=== PATIENT | female | born 1945 | race Caucasian/White ===

== ENCOUNTER → 2021-09-28 09:16 | Outpatient (CLI) | payer MEDICARE, SELFPAY ==
--- NOTE | ~2021-09-28 | CT_ITS ---
EXAMINATION: CT thoracic spine wo con EXAM DATE: 09/28/2021 09:38 INDICATION: Radiculopathy, thoracic pain. TECHNIQUE: Spiral CT thoracic spine was performed without contrast. Axial, coronal and sagittal im ages were reviewed. The dose-length product (DLP) for this examination was 995.36 mGy-cm. The expos ure was tailored according to patient size (auto mA exposure control), and iterative reconstruction ( ASIR) was used as additional dose reduction technique. There is no prior study for comparison. FINDINGS: There are moderate-sized mid and lower thoracic endplate osteophytes. There is mild to mod erate thoracic disc disease and facet arthropathy. There is sizable hemangioma in T5 and another T9. Vertebral body heights are relatively well-maintained, no acute fracture line is identified. No evide nce of significant thoracic central canal stenosis. There is mild to moderate right neural foraminal stenosis at T10-11, likely the most narrowed level. Pacemaker/AICD device. There are no bony erosions identified. There are no osteoblastic or osteolytic lesions identified. There is incompletely imaged right middle lobe airspace disease which could be atelectasis but cancer not excludable. The imaged portion measures about 1.4 cm. Further evaluation recommended with dedica teresa chest CT. There may be a 3 cm left thyroid lobe nodule which could be further evaluated with ultr asound. IMPRESSION: 1. Mild to moderate thoracic spondylosis. 2. Incompletely imaged right middle lobe indeterminate opacity; recommend chest CT without contrast. 3. Left thyroid lobe nodule; consider ultrasound for risk presentation. Reviewed, dictated and finalized at location G. BILLING SPECIALIST IMPRESSION: 1. Mild to moderate thoracic spondylosis. 2. Incompletely imaged right middle lobe indeterminate opacity; recommend ches t CT without contrast. 3. Left thyroid lobe nodule; consider ultrasound for risk presentation.
== END ==
PROVIDERS: PCP Family Medicine; Visit Provider Nurse Practitioner Family
DX: M47.24 Other spondylosis with radiculopathy, thoracic region (principal)
CPT/HCPCS: 72128

== ENCOUNTER → 2021-11-24 13:58 | Outpatient (CLI) | payer MEDICARE, SELFPAY ==
--- NOTE | ~2021-11-24 | CT_ITS ---
EXAMINATION: CT diagnostic chest wo con DATE: 11/24/2021 14:28 INDICATION: Recent CT thoracic spine examination of September 28, 2021 showed abnormal middle lobe [place], only partially visualized due to collimation TECHNIQUE: Computed tomography (CT) of the chest was performed without intravenous contrast. Automate d exposure control and iterative reconstruction technique were employed. Exam dose: 647.86 mGy-cm to dontae exam DLP. COMPARISON: September 28, 2021 CT thoracic spine FINDINGS: One or more hypoattenuating lesions of the left lobe of the thyroid gland measuring up to 1 9.5 mm transverse and 23 mm anteroposterior overall dimension. Consider thyroid ultrasound examinatio n for stratification. Left-sided transvenous pacemaker device with right atrial, right ventricular and coronary sinus leads . Normal heart size. Prominent coronary artery calcification. No pericardial effusion. No pleural effus ion. No hilar or mediastinal mass lesion or lymphadenopathy. No thoracic aortic aneurysm. Up to 1.5 x 2.4 cm circumscribed lobular low-attenuation opacity is noted in the anterior segment of the right upper lobe, abutting the minor fissure inferiorly, with attenuation of approximately 4-7 Ho unsfield units consistent with cystic lesion. Consider PET/CT scan for further evaluation. Mild bilateral apical and left upper lobe and lingular and middle lobe as well as left lower lobe dis coid atelectasis or more likely scarring. Mild emphysematous changes of the lung. No pulmonary consolidation. Status post cholecystectomy. Normal morphology of the adrenal glands. Gastric bypass surgical change. Small sliding hiatal hernia. Diffuse idiopathic skeletal hyperostosis of the thoracic spine. Vertebral body hemangiomas of several thoracic and lumbar vertebral bodies. 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 Reviewed, dictated and finalized at location A. 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
--- NOTE | ~2021-11-24 | US_ITS ---
EXAMINATION: US thyroid DATE: 11/24/2021 14:19 INDICATION: Thyroid nodule. TECHNIQUE: Multiple ultrasound images of the thyroid were obtained. COMPARISON: Thoracic spine CT 09/28/2021 FINDINGS: The right thyroid lobe measures 4.2 x 1.2 x 1.1 cm. The left thyroid lobe measures 5.0 x 2.8 x 2.4 c m. In the left thyroid lobe, there is a 3.6 cm solid, hypoechoic, [id number] nodule with smooth margin without echogenic foci (TI-RADS TR4). IMPRESSION: 1. Left thyroid nodule. Ultrasound-guided fine-needle aspiration is recommended. Reviewed, dictated and finalized at location A. IMPRESSION: 1. Left thyroid nodule. Ultrasound-guided fine-needle aspiration is recommended .
== END ==
DX: R91.8 Other nonspecific abnormal finding of lung field (principal); E04.1 Nontoxic single thyroid nodule; J43.9 Emphysema, unspecified; Z95.0 Presence of cardiac pacemaker; I25.10 Atherosclerotic heart disease of native coronary artery without angina pectoris; Z90.49 Acquired absence of other specified parts of digestive tract; K44.9 Diaphragmatic hernia without obstruction or gangrene; D18.09 Hemangioma of other sites; M48.14 Ankylosing hyperostosis [Forestier], thoracic region
CPT/HCPCS: 71250; 76536

== ENCOUNTER 2021-12-21 09:09 | Outpatient (CLI) | payer MEDICARE, SELFPAY ==
--- NOTE | ~2021-12-21 | PE_ITS ---
EXAMINATION: PET skull to mid thigh DATE: 12/21/2021 11:17 INDICATION: Cystic right upper lobe mass TECHNIQUE: Blood glucose level was 88 mg/dL. 8.873 mCi of 18-fluorodeoxyglucose (18-FDG) was administ ered i.v. Low dose computed tomography (CT) images were acquired from the base of the brain to the pr oximal thighs for attenuation correction and anatomic localization. Positron emission tomography (PET ) images were acquired in the same distribution beginning 81 minutes after injection. Images includin g fused PET/CT images were reconstructed in axial, coronal, and sagittal planes. Automated exposure c ontrol technique was employed. The dose-length product was 1211.97mGy-cm. COMPARISON: None FINDINGS: Head/neck: There is symmetric increased activity in the oral cavity, lingual tonsils, parotid glands, laryngea l muscles and ocular muscles without CT correlate, likely physiologic. 1.9 cm hypodense left thyroid nodule without increased FDG uptake. No pathologically enlarged cervical lymphadenopathy or suspiciou s foci of increased FDG uptake in the visualized head or neck. Chest: Left pectoral 3 lead pacemaker/AICD seen with lead tips at right atrial appendage, apex of the right ventricle and in the coronary vein overlying the lateral left ventricle having traversed the coronary sinus. Mild biapical pleural-parenchymal scarring. Mosaic attenuation of the lungs likely related to expiratory phase of imaging with subsegmental regions of air trapping likely related to small airway disease. There is flattening of the trachea and left and right mainstem bronchi consistent with bron chomalacia. There is moderate increased FDG uptake with maximal SUV of 6.4 associated with the 2.6 x 1.9 cm mass with lobular margins. At the anterior segment of the right upper lobe. Mild discoid atele ctasis in the right middle and left lower lobes. Heart size is normal. Atherosclerotic coronary arter y calcific location. No pericardial or pleural effusion. No pathologically enlarged or FDG avid thora cic lymphadenopathy. Abdomen/pelvis/proximal thighs: Cholecystectomy clips the gallbladder fossa. Postoperative changes of prior prior gastric bypass proc edure. Physiologic renal accumulation and excretion of FDG activity in the kidneys, bladder and along portions of ureters. Normal degree and heterogenous pattern of increased uptake throughout the liver without radiologic correlate or dominant FDG avid lesion. The spleen and bilateral adrenal glands ar e normal. Moderate fatty atrophy of the pancreas. There is mild colonic diverticulosis with a sigmoid predominance. There is no adjacent inflammatory change to suggest diverticulitis. Mild uptake scat tered throughout the bowels without radiologic correlate, also likely physiologic. Normal appendix. U terus and bilateral adnexa are unremarkable. No free intraperitoneal gas or fluid. No other abnormal foci of increased FDG uptake or pathologically enlarged lymphadenopathy in the abdomen, pelvis or pr oximal thighs. Musculoskeletal: Hemangiomas at L2 and L3. No suspicious lytic, blastic or FDG avid bone lesions. IMPRESSION: 1. Moderate increased FDG uptake associated with a 2.6 x 1.9 cm right upper lobe mass which raises co ncern for malignancy. Recommend CT-guided percutaneous biopsy. 2. No lesion suspicious for metastatic disease. Reviewed, dictated and finalized at location A. IMPRESSION: 1. Moderate increased FDG uptake associated with a 2.6 x 1.9 cm right upper lob e mass which raises concern for malignancy. Recommend CT-guided percutaneous bi opsy. 2. No lesion suspicious for metastatic disease.
[2021-12-21 09:49] LABS: Glucose Point of Care 88 mg/dl (65-105)
== END 2021-12-21 09:10 | disposition home or self-care (01) ==
DX: R91.8 Other nonspecific abnormal finding of lung field (principal)
CPT/HCPCS: 78815; A9552

== ENCOUNTER → 2022-08-07 12:45 | Outpatient (CLI) | payer MEDICARE, SELFPAY ==
--- NOTE | ~2022-08-07 | US_ITS ---
EXAMINATION: US thyroid DATE: 08/07/2022 13:06 INDICATION: Left thyroid nodule, status post FNA on the left 02/27/2022. TECHNIQUE: Multiple ultrasound images of the thyroid were obtained. COMPARISON: Ultrasound thyroid 11/24/2021. FINDINGS: The right thyroid lobe measures 3.9 x 1.2 x 1.1 cm. The left thyroid lobe measures 4.7 x 2.5 x 2.1 c m. There is normal echotexture and echogenicity throughout the thyroid gland. 3.5 cm solid, hypoecho ic, wider than tall nodule with smooth margins and no suspicious echogenic foci (TI-RADS TR4). Normal vascular flow is present. IMPRESSION: 1. 3.5 cm moderately suspicious (BI-RADS TR 4) left thyroid nodule which meets criteria for fine-need le aspiration. The patient reports undergoing prior FNA, although no FNA procedure or results are lady ilable in our system. Correlate with outside studies and confirm the pathology result. If nondiagnost ic, equivocal, or not obtainable, recommend proceeding with FNA. Reviewed, dictated and finalized at location K. AT [facility] OFFICER IMPRESSION: 1. 3.5 cm moderately suspicious (BI-RADS TR 4) left thyroid nodule which meets criteria for fine-needle aspiration. The patient reports undergoing prior FNA, although no FNA procedure or results are available in our system. Correlate wit h outside studies and confirm the pathology result. If nondiagnostic, equivocal , or not obtainable, recommend proceeding with FNA.
== END ==
PROVIDERS: PCP Family Medicine
DX: E04.1 Nontoxic single thyroid nodule (principal); R93.89 Abnormal findings on diagnostic imaging of other specified body structures
CPT/HCPCS: 76536

== ENCOUNTER → 2023-07-30 11:13 | Outpatient (CLI) | payer MEDICARE, SELFPAY ==
--- NOTE | ~2023-07-30 | US_ITS ---
EXAMINATION: US thyroid DATE: 07/30/2023 11:33 INDICATION: Thyroid nodule. TECHNIQUE: Multiple ultrasound images of the thyroid were obtained. COMPARISON: Ultrasound 08/07/2022, 11/24/2021 FINDINGS: The right thyroid lobe measures 4.0 x 1.1 x 1.0 cm. The left thyroid lobe measures 4.3 x 2.3 x 1.9 c m. In the left thyroid lobe, there is a 3.5 cm solid, hypoechoic, wider than tall nodule with smooth margin without echogenic foci (TI-RADS TR4). IMPRESSION: 1. Left thyroid nodule, stable from 11/24/2021. The patient reports that an outside biopsy in February was benign. Reviewed, dictated and finalized at location E. R WELL DRILLER IMPRESSION: 1. Left thyroid nodule, stable from 11/24/2021. The patient reports that an outs [place] biopsy in February 2022 was benign.
== END ==
DX: E04.1 Nontoxic single thyroid nodule (principal)
CPT/HCPCS: 76536

== ENCOUNTER 2025-01-06 09:58 | Outpatient (CLI) | payer MEDICARE, SELFPAY ==
--- NOTE | ~2025-01-06 | US_ITS ---
EXAMINATION: US thyroid DATE: 01/06/2025 10:20 INDICATION: Thyroid nodules. Patient reports a history of a FNA of the left lobe of the thyroid gland in 2021, yielding benign results. No pathology is in our system for confirmation. TECHNIQUE: Multiple ultrasound images of the thyroid were obtained. COMPARISON: Examination was compared with multiple studies performed most recently on 07/30/2023 and dating back to 11/24/2021. Of note, a PET/CT dated 12/21/2021 (as workup for a separate issue) did NOT demonstrate increased meta bolic activity within the thyroid gland. FINDINGS: The right thyroid lobe measures 3.2 x 1.1 x 1.3 cm. The left thyroid lobe measures 4.3 x 2.3 x 2.2 cm. Within the left lobe of the thyroid gland is a 35 x 20 x 19 mm nodule: Composition -solid or almost completely solid (2) Echogenicity -hyperechoic or isoechoic (1) Shape - wider than tall Margin - smooth Echogenic foci -punctate echogenic foci (3) = TR4 Mildly suspicious Greater than or equal to 1cm: Follow-up Greater than or equal to 1.5 cm: FNA The isthmus measures 0.3cm in anterior to posterior dimension. There is otherwise normal echotexture and echogenicity throughout the remainder of the thyroid gland. No additional discrete nodules identified. Normal vascular flow is present. IMPRESSION: Redemonstration of a TR 4 nodule within the left lobe of the thyroid gland measuring 35 mm in maximal dimension for which FNA is recommended, by morphology and size criteria (although as per patient his tory, this has already been performed, yielding benign results). Without an increase in size (stable at 35 mm in maximal dimension), continued follow-up may be perfor med. Repeat FNA is generally not routinely performed after a benign result unless there are specific reaso ns for concern, such as nodule growth, clinical suspicion, or patient anxiety. Reviewed, dictated and finalized at location A. IMPRESSION: Redemonstration of a TR 4 nodule within the left lobe of the thyroid gland sb uring 35 mm in maximal dimension for which FNA is recommended, by morphology an d size criteria (although as per patient history, this has already been perform ed, yielding benign results). Without an increase in size (stable at 35 mm in maximal dimension), continued f ollow-up may be performed. Repeat FNA is generally not routinely performed after a benign result unless th ere are specific reasons for concern, such as nodule growth, clinical suspicion , or patient anxiety.
== END 2025-01-06 09:59 | disposition home or self-care (01) ==
LOC: MICIMG 10:00
PROVIDERS: PCP Physician Assistant Medical; Visit Provider Surgery
DX: E04.1 Nontoxic single thyroid nodule (principal)
CPT/HCPCS: 76536